=== PATIENT | female | born 1965 | race Caucasian/White ===

== ENCOUNTER → 2020-05-08 14:44 | Outpatient (CLI) | payer OTHER, SELFPAY ==
--- NOTE | ~2020-05-08 | XR_ITS ---
EXAMINATION: XR foot RT min 3V DATE: 05/08/2020 15:08 INDICATION: Mass dorsal to the second metatarsophalangeal joint TECHNIQUE: Dorsoplantar, two oblique and lateral views of the right foot were obtained. COMPARISON: None. FINDINGS: Bone alignment is normal. No fracture. Mild osteoarthritis at the first metatarsophalangeal joint and a few interphalangeal joints. No cortical erosions or periosteal reaction. No calcific densities or radiopaque foreign bodies. IMPRESSION: 1. 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 Reviewed, dictated and finalized at location B.
== END ==
PROVIDERS: PCP Family Medicine; Visit Provider Physician Assistant
DX: M79.671 Pain in right foot (principal); R22.41 Localized swelling, mass and lump, right lower limb; M15.9 Polyosteoarthritis, unspecified
CPT/HCPCS: 73630

== ENCOUNTER → 2021-01-20 11:52 | Outpatient (CLI) | payer OTHER, SELFPAY ==
--- NOTE | ~2021-01-20 | MR_ITS ---
EXAMINATION: MR foot RT wo/w con DATE: 01/20/2021 12:59 INDICATION: Right foot mass TECHNIQUE: Magnetic resonance imaging (MRI) of the right fore/mid foot was performed without and with 13 mL Multihance intravenous contrast. Sequences included axial, sagittal and coronal T1-weighted FS E, sagittal sagittal fluid sensitive FSE STIR, axial and coronal T2-weighted FS FSE, axial T1-weighte d FS FSE and postcontrast T1-weighted FS FSE. COMPARISON: Right foot radiographs dated 05/08/2020 FINDINGS: Dorsiflexion and mild dorsal subluxation at the third and fourth metatarsophalangeal joints. There is also mild lateral subluxation and angulation at the fourth metatarsophalangeal joint with the fourth toe crossing above the fifth toe. Increased signal at the plantar plate at the base of the fourth pr oximal phalanx suggesting at least partial tear. Similarly there is increased signal and thickening o f the medial collateral ligament at the fourth metatarsophalangeal joint also suggesting partial tear . Alignment is otherwise normal. The Lisfranc ligament complex and the remaining metatarsophalangeal and interphalangeal collateral ligament complexes appear normal. Mild marrow edema at the base of the fourth proximal phalanx and at the head of the fourth metatarsal with small joint effusion and enhan cing synovitis at the fourth metatarsophalangeal joint. Bone marrow signal is otherwise normal. No fr acture. No regions of loss of T1 marrow fat signal to suggest osteomyelitis or other pathologic marro w replacing process. Mild osteoarthritis at the first metatarsophalangeal and a few tarsal metatarsal joints. Visualized portions of the flexor and extensor tendons as well as intrinsic musculature of t he foot are unremarkable. There is focal mild bulge along the skin surface between the heads of the f irst and second metatarsals with underlying focally thickened subcutaneous fat without a discrete enc apsulated lipoma. No other abnormal masses or abnormally enhancing lesions identified. IMPRESSION: 1. Focal thickening of the otherwise normal-appearing subcutaneous fat dorsal to the space between th e heads of the first and second metatarsals. No other abnormal masses identified. 2. Small joint effusion and mild at the inflammatory non-masslike enhancement surrounding the right f ourth metatarsophalangeal joint where there is mild dorsal and lateral subluxation and dorsal and lat eral angulation at the fourth metatarsophalangeal joint with suggestion of at least partial tear of t he plantar plate at the base of the first proximal phalanx of the radial collateral ligament complex. 3. Mild dorsal subluxation and dorsal angulation at the third metatarsophalangeal joint without evide nt tear of the plantar plate or collateral ligament complex. Reviewed, dictated and finalized at location A. IMPRESSION: 1. Focal thickening of the otherwise normal-appearing subcutaneous fat dorsal t o the space between the heads of the first and second metatarsals. No other abn ormal masses identified. 2. Small joint effusion and mild at the inflammatory non-masslike enhancement s urrounding the right fourth metatarsophalangeal joint where there is mild dorsa l and lateral subluxation and dorsal and lateral angulation at the fourth metat arsophalangeal joint with suggestion of at least partial tear of the plantar pl ate at the base of the first proximal phalanx of the radial collateral ligament complex. 3. Mild dorsal subluxation and dorsal angulation at the third metatarsophalange al joint without evident tear of the plantar plate or collateral ligament compl ex.
[2021-01-20 12:20] LABS: Estimated Glomerular Filt Rate > 60
== END ==
DX: M25.471 Effusion, right ankle (principal)
CPT/HCPCS: 73720; A9577

== ENCOUNTER → 2023-04-13 10:05 | Outpatient (CLI) | payer OTHER, SELFPAY ==
--- NOTE | ~2023-04-13 | DEXA_ITS ---
Bone Density Report Name: HERNANDEZ MORALES Age: 58 Sex: Female Ethnicity: White Date of : 1965 Indication: postmenopausal; screening for osteoporosis; hysterectomy; Referring Provider: KARL CORONA Study: Bone densitometry was performed. Exam Date: April 13, 2023 Accession number: [id number] Bone Density: Region BMD T-score Z-score Classification AP Spine (L1-L4) 1.067 0.2 1.5 Normal Femoral Neck (Left) 0.656 -1.7 -0.5 Osteopenia Total Hip (Left) 0.851 -0.7 0.1 Normal Femoral Neck (Right) 0.706 -1.3 -0.1 Osteopenia Total Hip (Right) 0.863 -0.6 0.2 Normal Total Hip Mean 0.857 -0.7 0.2 Normal World Health Organization criteria for BMD impression classify patients as: Normal (T-score at or above -1.0), Osteopenia (T-score between -1.0 and -2.5), or Osteoporosis (T-score at or below -2.5). 10-year Fracture Risk(1): Major Osteoporotic Fracture 8.1% Hip Fracture 0.8% Reported Risk Factors: [place] (), Neck BMD=0.656, BMI=26.9 (1) FRAX(R) Version 3.08. Fracture probability calculated for an untreated patient. Fracture probability may be lower if the patient has received treatment. Clinical Information Provided by Patient: Has the following medical conditions: Hysterectomy Patient maximum height was 62.5 Menopause Age: 52 No regular weight bearing exercise Drinks caffeinated beverages Onset of menses at age 12 Number of children 1 Impression: The patient has low bone mass, based on the Left Femoral Neck T-score. The patient has an estimated ten-year risk of hip fracture of 0.8% and an estimated ten-year risk of major fracture of 8.1%, based on the WHO FRAX algorithm. Discussion: BONE DENSITY IS LOW AT ONE OR MORE SKELETAL SITES. This patient's lowest T-score is low at one or more skeletal sites. It meets the World Health Organization's (WHO) criteria for ?low bone mass? (T-score between -1.0 and -2.5). The patient's 10-year risk of fracture as calculated by FRAX is less than the threshold where pharmacological therapy is recommended by the National Osteoporosis Foundation (NOF). However, all treatment decisions require clinical judgment and consideration of individual patient factors, including patient preferences, comorbidities, previous drug use, risk factors not captured in the FRAX model (e.g., frailty, falls, vitamin D deficiency, increased bone turnover, interval significant decline in bone density) and possible under or overestimation of fracture risk by FRAX. The patient should follow a healthful lifestyle (good nutrition with adequate calcium and vitamin D, and appropriate weight-bearing exercise). Follow-Up: Consider repeating this study in 2 to 3 years to reassess this patient's status, or sooner if there is some new clinical indication. Reported by: [email or web address]
== END ==
DX: L40.50 Arthropathic psoriasis, unspecified (principal); Z78.0 Asymptomatic menopausal state; M85.852 Other specified disorders of bone density and structure, left thigh; M85.851 Other specified disorders of bone density and structure, right thigh
CPT/HCPCS: 77080